=== PATIENT | female | born 1950 | race African-American/Black ===

== ENCOUNTER 2022-03-02 09:36 | Outpatient (CLI) | payer MEDICARE ==
--- NOTE | 2022-03-03 08:28 | Mammography Report ---
BILATERAL DIGITAL SCREENING MAMMOGRAM 3D/2D: 03/02/2022 CLINICAL: Routine screening. No prior exams were available for comparison. The tissue of both breasts is heterogeneously dense. T his may lower the sensitivity of mammography. There is a high density asymmetry in the right breast middle depth central to the nipple seen on the craniocaudal view only. Post operative findings in the right breast. Left breast biopsy clip. No other significant masses, calcifications, or other findings are seen in either breast. IMPRESSION: INCOMPLETE: NEEDS ADDITIONAL IMAGING EVALUATION Asymmetry in the right breast is indeterminate. Additional views with possible ultrasound are recommended. This exam was interpreted at Station ID: [id number]. NOTE: For mammograms, a report in lay terms will be sent to the patient. Approximately 15% of breast malignancies will not be visualized mammographically. In the management of a palpable breast mass, a negative mammogram must not discourage biopsy of a clinically suspicious lesion. Electronically Signed By: Pedro Britton M.D. slc/:03/02/2022 14:31:55 ACR BI-RADS Category 0: Incomplete 3340F PARENCHYMAL PATTERN: (D) - The breast(s) demonstrate(s) heterogeneously dense fibroglandular parenchy ma. BI-RADS CATEGORY: (0) - 0 Mammo and [place] [id number] Immediate follow-up LATERALITY: (B)
== END 2022-03-02 09:37 | disposition home or self-care (01) ==
LOC: DI 09:36
PROVIDERS: ATTEND Internal Medicine
DX: Z12.31 Encounter for screening mammogram for malignant neoplasm of breast (principal); R92.8 Other abnormal and inconclusive findings on diagnostic imaging of breast

== ENCOUNTER 2022-03-24 11:03 | Outpatient (CLI) | payer MEDICARE ==
--- NOTE | 2022-03-24 15:44 | Ultrasound Report ---
PROCEDURE: Duplex Lwr Ext Arterial Bilat INDICATIONS: PERIPHERAL VASCULAR DISEASE TECHNIQUE: Color and pulse Doppler interrogation was performed of both lower extremity arterial systems, with im age documentation. COMPARISON: None FINDINGS: Right lower extremity: Common femoral artery: 174.3 cm/sec, with triphasic flow. Deep femoral artery: 124.7 cm/sec, with triphasic flow. Proximal superficial femoral artery: 94.0 cm/sec, with triphasic flow. Mid superficial femoral artery: 131.0 cm/sec, with triphasic flow. Distal superficial femoral artery: 144.1 cm/sec, with triphasic flow. Popliteal artery: 67.0 cm/sec, with triphasic flow. Posterior tibial artery: 21.7 cm/sec, with monophasic flow. Anterior tibial artery/dorsalis pedis: 65.4/0 cm/sec, with biphasic/occluded flow. Salomon-scale imaging description: Moderate calcified plaque. Probable right mid posterior tibial arter y stenosis. Occluded dorsalis pedis. Monophasic posterior tibial. Left lower extremity: Common femoral artery: 166.8 cm/sec, with triphasic flow. Deep femoral artery: 106.8 cm/sec, with triphasic flow. Proximal superficial femoral artery: 108.7 cm/sec, with triphasic flow. Mid superficial femoral artery: 97.1 cm/sec, with triphasic flow. Distal superficial femoral artery: 84.9 cm/sec, with triphasic flow. Popliteal artery: 90.0 cm/sec, with triphasic/biphasic flow. Posterior tibial artery: 29.5 cm/sec, with proximal occlusion, distal biphasic flow. Anterior tibial artery/dorsalis pedis: 880/120 cm/sec, with biphasic/monophasic flow. Salomon-scale imaging description: Moderate diffuse plaque. Occluded proximal left posterior tibial art bethany with reconstitution via collaterals. Monophasic dorsalis pedis. IMPRESSION: 1. No evidence of inflow stenotic disease. 2. No hemodynamically significant stenosis identified from the common femorals through the popliteals bilaterally. 3. Right lower extremity runoff significant for a right posterior tibial artery stenosis and occlusio n of the dorsalis pedis. 4. Left lower extremity runoff significant for occlusion of the posterior tibial proximally root with reconstitution and distal anterior tibial artery distribution disease. Reviewed by: West Moyer MD on 03/24/2022 3:43 PM PDT Approved by: West Moyer MD on 03/24/2022 3:43 PM PDT Station ID: [id number]
== END 2022-03-24 11:04 | disposition home or self-care (01) ==
LOC: DI 11:03
PROVIDERS: ATTEND Physician Assistant
DX: I70.201 Unspecified atherosclerosis of native arteries of extremities, right leg (principal); I70.202 Unspecified atherosclerosis of native arteries of extremities, left leg
CPT/HCPCS: 93925

== ENCOUNTER 2022-03-24 11:04 | Outpatient (CLI) | payer MEDICARE ==
--- NOTE | 2022-03-25 09:36 | Mammography Report ---
UNILATERAL RIGHT DIGITAL DIAGNOSTIC MAMMOGRAM 3D/2D: 03/24/2022 CLINICAL: Patient returns today to evaluate an asymmetry in the right breast. Comparison is made to exam dated: 03/02/2022 mammogram - [facility]. The tissue of right breast is heterogeneously dense. This may lower the sensitivity of mammography. The possible high density asymmetry in the right breast middle depth central to the nipple seen on th e craniocaudal view only is not reproduced and presumably represented superimposed breast tissue. Th is is not confirmed with additional views. No other significant masses or calcifications are seen in the breast. IMPRESSION: INCOMPLETE: NEEDS ADDITIONAL IMAGING EVALUATION An ultrasound is recommended to confirm abscence of the high density asymmetry in the right breast mi ddle depth central to the nipple that was seen on the screening mammogram. This was performed immedi ately following this exam. This exam was interpreted at Station ID: [id number]. NOTE: For mammograms, a report in lay terms will be sent to the patient. Approximately 15% of breast malignancies will not be visualized mammographically. In the management of a palpable breast mass, a negative mammogram must not discourage biopsy of a clinically suspicious lesion. Electronically Signed By: Joana hernández/:03/24/2022 13:05:36 ACR BI-RADS Category 0: Incomplete 3340F PARENCHYMAL PATTERN: (D) - The breast(s) demonstrate(s) heterogeneously dense fibroglandular partylery eugenia. BI-RADS CATEGORY: (0) - 0 Ultrasound [id number] Immediate follow-up LATERALITY: (B)
--- NOTE | 2022-03-25 09:36 | Ultrasound Report ---
LIMITED ULTRASOUND OF RIGHT BREAST: 03/24/2022 CLINICAL: Patient returns today to evaluate a focal asymmetry in the right breast. Comparison is made to exams dated: 03/24/2022 mammogram and 03/02/2022 mammogram - [facility]. Real-time ultrasound of the right breast 11-12 o'clock region was performed. Salomon scale images of th e real-time examination were reviewed. No significant abnormalities were seen sonographically in the right breast. Specifically, no finding to correspond to the patient's possible mammographic abnormality. IMPRESSION: PROBABLY BENIGN There is no sonographic correlate to the patient's unconvincing mammographic abnormality. This is lik umer overlapping fibroglandular tissue. A follow-up right mammogram in 6 months is recommended to demonstrate stability. Findings and recommendations were conveyed to the patient at time of exam. This exam was interpreted at Station ID: [id number]. Electronically Signed By: Joana hernández/:03/24/2022 15:09:20 Ultrasound BI-RADS: 3 Probably benign BI-RADS CATEGORY: (3) - 3 Mammogram [id number] 6 month follow-up LATERALITY: (R)
== END 2022-03-24 11:05 | disposition home or self-care (01) ==
LOC: DI 11:04
PROVIDERS: ATTEND Internal Medicine
DX: R92.8 Other abnormal and inconclusive findings on diagnostic imaging of breast (principal)

== ENCOUNTER 2022-11-24 10:29 | Outpatient (CLI) | payer MEDICARE ==
--- NOTE | 2022-11-25 11:47 | Mammography Report ---
UNILATERAL RIGHT DIGITAL DIAGNOSTIC MAMMOGRAM 3D/2D: 11/24/2022 CLINICAL: Patient returns for a 6 month follow up of the right breast. Personal history of right [address] cancer. Comparison is made to exams dated: 03/24/2022 ultrasound, 03/24/2022 mammogram, and 03/02/2022 mammogram - [facility]. The right breast is heterogeneously dense, which may obscure small masses (category c / 51-75% glandu lar tissue). There is a possible asymmetry in the right breast middle depth central to the nipple seen on the cran iocaudal view only. This is less prominent. No other significant masses or calcifications are seen in the breast. IMPRESSION: PROBABLY BENIGN The possible asymmetry in the right breast is probably benign. A follow-up mammogram in 6 months is recommended. A follow-up mammogram in 6 months is recommended to demonstrate stability. This exam was interpreted at Station ID: [id number]. NOTE: For mammograms, a report in lay terms will be sent to the patient. Approximately 15% of breast malignancies will not be visualized mammographically. In the management of a palpable breast mass, a negative mammogram must not discourage biopsy of a clinically suspicious lesion. Electronically Signed By: Ronnie Bullock M.D. lc/:11/24/2022 11:00:13 ACR BI-RADS Category 3: Probably benign 3343F PARENCHYMAL PATTERN: (D) - The breast(s) demonstrate(s) heterogeneously dense fibroglandular lisbet bello. BI-RADS CATEGORY: (3) - 3 Mammogram [id number] 6 month follow-up LATERALITY: (B)
== END 2022-11-24 10:30 | disposition home or self-care (01) ==
LOC: DI 10:29
PROVIDERS: ATTEND Internal Medicine
DX: R92.8 Other abnormal and inconclusive findings on diagnostic imaging of breast (principal)

== ENCOUNTER 2023-07-07 12:44 | Outpatient (CLI) | payer MEDICARE ==
--- NOTE | 2023-07-08 15:51 | Mammography Report ---
BILATERAL DIGITAL DIAGNOSTIC MAMMOGRAM 3D/2D: 07/07/2023 CLINICAL: Patient returns for a 6 month follow up of the right breast, due for bilateral exam. Comparison is made to exams dated: 11/24/2022 mammogram, 03/24/2022 mammogram, and 03/02/2022 mammogram - [facility]. Both breasts are heterogeneously dense, which may obscure small masses (category c / 51-75% glandular tissue). Prior asymmetry is no longer seen in the right breast central to the nipple. The patient is status p ost lumpectomy right breast in the lower inner quadrant. Benign calcifications seen in the left [address]. No significant masses, calcifications, or other findings are seen in either breast. IMPRESSION: PROBABLY BENIGN Less prominent finding of possible asymmetry in the central right breast compared to prior exams. A f ollow-up right mammogram in 6 months is recommended to demonstrate stability given patient history of right breast cancer. Left mammogram is stable. Findings and recommendations were conveyed to the patient at time of exam. This exam was interpreted at Station ID: [id number]. NOTE: For mammograms, a report in lay terms will be sent to the patient. Approximately 15% of breast malignancies will not be visualized mammographically. In the management of a palpable breast mass, a negative mammogram must not discourage biopsy of a clinically suspicious lesion. Electronically Signed By: Joana hernández/:07/07/2023 13:32:04 ACR BI-RADS Category 3: Probably benign 3343F PARENCHYMAL PATTERN: (D) - The breast(s) demonstrate(s) heterogeneously dense fibroglandular lisbet bello. BI-RADS CATEGORY: (3) - 3 Mammogram [id number] 6 month follow-up LATERALITY: (R)
== END 2023-07-07 12:45 | disposition home or self-care (01) ==
LOC: DI 12:44
PROVIDERS: ATTEND Internal Medicine
DX: R92.8 Other abnormal and inconclusive findings on diagnostic imaging of breast (principal); R92.333 Mammographic heterogeneous density, bilateral breasts

== ENCOUNTER 2023-09-05 08:56 | Outpatient (CLI) | payer MEDICARE, MEDICAID ==
--- NOTE | 2023-09-05 14:18 | Ultrasound Report ---
PROCEDURE: Carotid Doppler Complete INDICATIONS: CAROTID BRUIT TECHNIQUE: Color and pulse Doppler interrogation was performed of both carotid systems, with image documentation and velocity measurements. COMPARISON: None. FINDINGS: Right side: Brachial blood pressure cannot be assessed due to history of chemotherapy and edema within this regio n. Common carotid artery peak systolic velocity: 59 cm/sec. Internal carotid artery peak systolic velocity: 121 cm/sec. Internal carotid artery end diastolic velocity: 36 cm/sec. External carotid artery peak systolic velocity: 74 cm/sec. ICA/CCA peak systolic ratio: 2.0 . Salomon scale imaging description: Moderate atherosclerotic plaque. Percent internal carotid artery stenosis: Less than 50 percent stenosis. Vertebral artery: Flow direction is antegrade. Left side: Brachial blood pressure: 187/74 mm Hg. Common carotid artery peak systolic velocity: 46 cm/sec. Internal carotid artery peak systolic velocity: 66 cm/sec. Internal carotid artery end diastolic velocity: 21 cm/sec. External carotid artery peak systolic velocity: 48 cm/sec. ICA/CCA peak systolic ratio: 1.4 . Salomon scale imaging description: Mild atherosclerotic plaque. Percent internal carotid artery stenosis: Less than 50 percent stenosis. Vertebral artery: Flow direction is antegrade. IMPRESSION: 1. In the right internal carotid artery, there is less than 50 percent stenosis based on peak systoli c velocity criteria. 2. In the left internal carotid artery, there is less than 50 percent stenosis based on peak systolic velocity criteria. 3. Antegrade blood flow within the right vertebral artery. 4. Antegrade blood flow within the left vertebral artery. The estimate of stenosis included in the report of the imaging study was calculated using the [facility]-end orsed standards of carotid artery stenosis. Reviewed by: Pedro Jones MD on 09/05/2023 2:16 PM PST Approved by: Pedro Jones MD on 09/05/2023 2:16 PM PST Station ID: [id number]
== END 2023-09-05 08:57 | disposition home or self-care (01) ==
LOC: DI 08:56
PROVIDERS: ATTEND Internal Medicine
DX: R09.89 Other specified symptoms and signs involving the circulatory and respiratory systems (principal); I65.23 Occlusion and stenosis of bilateral carotid arteries
CPT/HCPCS: 93880

== ENCOUNTER 2023-11-14 09:40 | Outpatient (CLI) | payer MEDICARE, MEDICAID ==
--- NOTE | 2023-11-14 14:06 | XRAY Report ---
PROCEDURE: Chest 2V INDICATIONS: DYSPNEA TECHNIQUE: 2 views of the chest were acquired. COMPARISON: None. FINDINGS: Surgical changes and devices: None. Lungs and pleura: No pleural effusions or pneumothorax. Lungs are clear. Mediastinum: Mediastinal contours appear normal. Heart size is normal. Bones and chest wall: No suspicious bony lesions. Overlying soft tissues appear unremarkable. IMPRESSION: No acute cardiopulmonary process. Reviewed by: Marilyn Gottlieb MD on 11/14/2023 2:05 PM PDT Approved by: Marilyn Gottlieb MD on 11/14/2023 2:05 PM PDT Station ID: [id number]
== END 2023-11-14 09:41 | disposition home or self-care (01) ==
LOC: DI 09:40
PROVIDERS: ATTEND Nurse Practitioner Family
DX: R06.00 Dyspnea, unspecified (principal)